=== PATIENT | male | born 1960 | race Caucasian/White ===

== ENCOUNTER 2019-01-25 06:46 | Emergency (ER) | payer SELFPAY ==
--- NOTE | 2019-01-25 07:36 | ER ---
Nurse's Notes [facility] Name: Nader Sood Age: 58 yrs Sex: Male : 1960 Arrival Date: 01/25/2019 Time: 07:02 Bed 14 Private MD: Diagnosis: Post-surgical seroma Presentation: 01/25 07:21 Presenting complaint: Had left inguinal repair January 07, flew in from [place] hb yesterday, noticed left groin lump that is painful to touch last night. Transition of care: patient was not received from another setting of care. Onset of symptoms was January 24, 2019. Risk Assessment: Do you want to hurt yourself or someone else? Patient reports no desire to harm self or others. Initial Sepsis Screen: Does the patient meet any 2 criteria? No. Patient's initial sepsis screen is negative. Does the patient have a suspected source of infection? No. Patient's initial sepsis screen is negative. Care prior to arrival: None. 07:21 Method Of Arrival: Ambulatory 07:21 Acuity: PARMINDER 4 hb Historical: - Allergies: 07:24 No Known Allergies; hb - PMHx: 07:24 Hypertension; Hypothyroidism; hb - PSHx: 07:24 Hernia repair; hb - Immunization history:: Adult Immunizations up to date. - Social history:: Smoking status: Patient/guardian denies using tobacco. - Ebola Screening: : No symptoms or risks identified at this time. - Family history:: not pertinent. - Hospitalizations: : No recent hospitalization is reported. Screenin:35 Abuse screen: Denies threats or abuse. Nutritional screening: No deficits noted. aa5 Tuberculosis screening: No symptoms or risk factors identified. Fall Risk None identified. Assessment: 07:35 General: Appears comfortable, Behavior is calm, cooperative. Pain: Complains of pain in aa5 left groin Pain does not radiate. Pain currently is 3 out of 10 on a pain scale. Neuro: Level of Consciousness is awake, alert, obeys commands, Oriented to person, place, time, situation. Cardiovascular: Patient's skin is warm and dry. Respiratory: Airway is patent Respiratory effort is even, unlabored, Respiratory pattern is regular, symmetrical. GI: No signs and/or symptoms were reported involving the gastrointestinal system. Patient currently denies abdominal pain, diarrhea, nausea, vomiting. : No signs and/or symptoms were reported regarding the genitourinary system. EENT: No signs and/or symptoms were reported regarding the EENT system. Derm: Skin is pink, warm \T\ dry. Reports lump to surgical site. Musculoskeletal: Range of motion: intact in all extremities. Vital Signs: 07:19 BP 156 / 72; Pulse 75; Resp 16; Temp 98; Pulse Ox 99% on R/A; Weight 113.4 kg; Height 5 hb ft. 6 in. (167.64 cm); Pain 3/10; 07:19 Body Mass Index 40.35 (113.40 kg, 167.64 cm) hb ED Course: 07:02 Patient arrived in ED. es 07:20 Pedro Edwards MD is Attending Physician. rn 07:20 Arm band placed on. hb 07:23 Triage completed. hb 07:27 Tri García, DARON is Primary Nurse. aa5 07:35 Patient has correct armband on for positive identification. Bed in low position. aa5 07:37 No provider procedures requiring assistance completed. Patient did not have IV access aa5 during this emergency room visit. Administered Medications: No medications were administered Outcome: 07:35 Discharge ordered by . rn 07:37 Discharged to home ambulatory. aa5 07:37 Condition: stable 07:37 Discharge instructions given to patient, Instructed on discharge instructions, follow up and referral plans. Demonstrated understanding of instructions, follow-up care. 07:41 Patient left the ED. bd Signatures: Lili Adrian Edna es Nieto, Roman, MD MD rn Calderon, Audri RN RN aa5 Guerda Walters RN RN
--- NOTE | 2019-01-25 07:36 | EDPHYS ---
Physician Documentation [facility] Name: Nader Sood Age: 58 yrs Sex: Male : 1960 Arrival Date: 01/25/2019 Time: 07:02 Bed 14 Private MD: ED Physician Pedro Edwards HPI: 01/25 07:30 This 58 yrs old Male presents to ER via Ambulatory with complaints of LT rn hernia surgery complications. 07:30 The patient presents with abdominal pain. Onset: The symptoms/episode began/occurred rn yesterday. The symptoms do not radiate. Associated signs and symptoms: none. Pertinent negatives: nausea and vomiting, anorexia, blood in stools, constipation, diarrhea, dysuria, fever, hematuria, shortness of breath, testicular pain, vomiting, vomiting blood. The symptoms are described as achy. Modifying factors: the symptoms are aggravated by touching the area. Severity of pain: At its worst the pain was mild in the emergency department the pain is unchanged. The patient has not experienced similar symptoms in the past. The patient has been recently seen by a physician:. REports left hernia surgery with mesh almost 2.5 weeks ago, from out of town, long 8 hour flight yesterday here for work, reports noticed lump at site of surgery. No fever/abd pain/vomiting/diarrhea/blood in stools. Reports pain improved this AM, called his surgeon who recommended since out of town to go to ER to be evaluated. . Historical: - Allergies: 07:24 No Known Allergies; hb - PMHx: 07:24 Hypertension; Hypothyroidism; hb - PSHx: 07:24 Hernia repair; hb - Immunization history:: Adult Immunizations up to date. - Social history:: Smoking status: Patient/guardian denies using tobacco. - Ebola Screening: : No symptoms or risks identified at this time. - Family history:: not pertinent. - Hospitalizations: : No recent hospitalization is reported. ROS: 07:30 Constitutional: Negative for fever, chills, and weight loss, Eyes: Negative for injury, rn pain, redness, and discharge, Neck: Negative for injury, pain, and swelling, Cardiovascular: Negative for chest pain, palpitations, and edema, Respiratory: Negative for shortness of breath, cough, wheezing, and pleuritic chest pain, Abdomen/GI: + localized abd pain over site of surgery, negative for vomiting/anorexia/diarrhea/blood in stool Back: Negative for injury and pain, : Negative for injury, bleeding, discharge, and swelling, MS/Extremity: Negative for injury and deformity, Skin: Negative for injury, rash, and discoloration, Neuro: Negative for headache, weakness, numbness, tingling, and seizure. Exam: 07:30 Constitutional: This is a well developed, well nourished patient who is awake, alert, rn and in no acute distress. Abdomen/GI: soft, non-tender in all 4 quadrants, no rebound, + 4cm oblong localized swelling under surgical wound, wound c/d/i without overlying skin changes, mass is mobile and firm, seems to be isolated just in subcutaneous tissues, easy to manipulate and move, no abd tenderness when swelling moved to side. Skin: Warm, dry with normal turgor. Normal color with no rashes, no lesions, and no evidence of cellulitis. MS/ Extremity: Pulses equal, no cyanosis. Neurovascular intact. Full, normal range of motion. Equal circumference. Neuro: Awake and alert, GCS 15, oriented to person, place, time, and situation. Cranial nerves II-XII grossly intact. Motor strength 5/5 in all extremities. Sensory grossly intact. Cerebellar exam normal. Normal gait. Vital Signs: 07:19 BP 156 / 72; Pulse 75; Resp 16; Temp 98; Pulse Ox 99% on R/A; Weight 113.4 kg; Height 5 hb ft. 6 in. (167.64 cm); Pain 3/10; 07:19 Body Mass Index 40.35 (113.40 kg, 167.64 cm) hb MDM: 07:20 Patient medically screened. rn 07:30 Differential diagnosis: seroma, healing wound, failure of mesh. Data reviewed: vital rn signs, nurses notes, and as a result, I will discharge patient. Counseling: I had a detailed discussion with the patient and/or guardian regarding: the historical points, exam findings, and any diagnostic results supporting the discharge/admit diagnosis, the need for outpatient follow up, to return to the emergency department if symptoms worsen or persist or if there are any questions or concerns that arise at home. Special discussion: I discussed with the patient/guardian in detail that at this point there is no indication for admission to the hospital. It is understood, however, that if the symptoms persist or worsen the patient needs to return immediately for re-evaluation. ED course: SPoke at length with patient, most likely seroma given afebrile, normal abd exam, no GI symptoms, and mobile mass isolated to subcutaneous tissues. Offered blood work and ct scan to rule out complication, patient content with evaluation and explanations given, will f/u with his surgeon when goes home. Recommend warm compress and return precautions.. Administered Medications: No medications were administered Disposition: 01/25/19 07:35 Discharged to Home. Impression: Post-surgical seroma. - Condition is Stable. - Discharge Instructions: Laparoscopic Inguinal Hernia Repair, Pediatric, Care After, Seroma. - Medication Reconciliation Form, Thank You Letter, Antibiotic Education, Prescription Opioid Use form. - Follow up: Private Physician; When: As needed; Reason: Recheck today's complaints, Re-evaluation by your physician. - Problem is new. - Symptoms have improved. Signatures: Lili Adrian Roman, MD MD rn Baxter, Heather, RN RN Corrections: (The following items were deleted from the chart) 07:41 07:35 01/25/2019 07:35 Discharged to Home. Impression: Post-surgical seroma. Condition bd is Stable. Forms are Medication Reconciliation Form, Thank You Letter, Antibiotic Education, Prescription Opioid Use. Follow up: Private Physician; When: As needed; Reason: Recheck today's complaints, Re-evaluation by your physician. Problem is new. Symptoms have improved. rn
== END 2019-01-25 07:41 | disposition home or self-care (01) ==
LOC: ER 06:46
DX: L76.34 Postprocedural seroma of skin and subcutaneous tissue following other procedure (principal); I10 Essential (primary) hypertension; E03.9 Hypothyroidism, unspecified
CPT/HCPCS: 99281